=== PATIENT | female | born 1990 | race African-American/Black ===

== ENCOUNTER 2017-09-22 19:27 | Emergency (ER) | payer SELFPAY ==
[~2017-09-22] VITALS: Ht 121.9 cm; Wt 48.0 kg
[~2017-09-22 19:27] MED LIST: HYDR1OIN TOP; PERM5LOT TOP
[2017-09-22 19:29] VITALS: BP 102/62; PULSE 90; RESP 16; TEMP 98.8; O2SAT 100
[2017-09-22] MEDS ORDERED: SODIUM CHLOR 0.9% 1000 ML INJ 1,000 ML IV ONE (20:43)
[2017-09-22] MEDS ORDERED: SODIUM CHLORIDE 0.9% FLUSH 10 ML FLUSH IVF PRN (20:45)
--- NOTE | 2017-09-22 20:58 | PD ---
HPI Chief Complaint: Syncope/Near-Syncope Time Seen by Provider: 20:32 Travel History International Travel<30 days: No Contact w/Intl Traveler<30days: No Traveled to known affect area: No History of Present Illness HPI Patient is a 27-year-old female who presents to emergency room for evaluation of near syncopal versus syncopal episode today. Patient reports that she was at her kitchen table today and felt lightheaded and faint. Reports that she put her head down onto the table and reports that she "blacked out." Patient reports that she was "blacked out" for a minute and then was able to come to. Denies any incontinence of urine or stool, reports no seizure activity. Patient reports that she felt fine all day, she had actually just finished eating her first meal of the day. Reports mild headache at this time. Denies vision changes. Denies n/v. Denies chest pain/sob. Denies abdominal pain. Denies fever/chills. Patient also admits to smoking marijuana. Patient currently not on any anticoagulants at this time. [facility] Past Medical History Medical History: Denies Significant Hx ?: Not LMP: CURRENT Past Surgical History Surgical History: No Previous Surgery Social History Alcohol Use: Yes (OCC) Tobacco Use: No Substance Use: Yes (WEED 2XS MONTHLY) Allergies-Medications (Allergen,Severity, Reaction): Coded Allergies: No Known Allergies (Unverified Adverse Reaction, Unknown, 09/22/17) Reported Meds & Prescriptions Reported Meds & Active Scripts Active Hydrocortisone Maximum St (Hydrocortisone) 1 % Oin 1 Applic TOP BID APPLY TO: Permethrin 1 % Lot 1 Applic TOP ONCE SHAMPOO Review of Systems General / Constitutional: No: Fever Eyes: No: Visual changes HENT: Positive: Headaches, Lightheadedness Cardiovascular: Positive: Syncope, No: Chest Pain or Discomfort Respiratory: No: Shortness of Breath Gastrointestinal: No: Abdominal Pain Genitourinary: No: Dysuria Musculoskeletal: No: Pain Skin: No Rash Neurologic: Positive: Syncope, Headache, No: Weakness, Dizziness Psychiatric: No: Depression Endocrine: No: Polydipsia Hematologic/Lymphatic: No: Easy Bruising Physical Exam Narrative GENERAL: NAD SKIN: Focused skin assessment warm/dry. HEAD: Atraumatic. Normocephalic. EYES: Pupils equal and round. No scleral icterus. No injection or drainage. ENT: No nasal bleeding or discharge. Mucous membranes pink and moist. NECK: Trachea midline. No JVD. CARDIOVASCULAR: Regular rate and rhythm. No murmur appreciated. RESPIRATORY: No accessory muscle use. Clear to auscultation. Breath sounds equal bilaterally. GASTROINTESTINAL: Abdomen soft, non-tender, nondistended. Hepatic and splenic margins not palpable. MUSCULOSKELETAL: No obvious deformities. No clubbing. No cyanosis. No edema. NEUROLOGICAL: Awake and alert. No obvious cranial nerve deficits. Motor grossly within normal limits. Normal speech. CN 2-12 grossly intact with no neurological deficits PSYCHIATRIC: Appropriate mood and affect; insight and judgment normal. Data Data Last Documented VS Vital Signs Date Time Temp Pulse Resp B/P (MAP) Pulse Ox O2 Delivery O2 Flow Rate FiO2 09/22/17 19:29 98.8 90 16 102/62 (75) 100 Room Air Orders Orders Electrocardiogram (09/22/17 20:43) Basic Metabolic Panel (Bmp) (09/22/17 20:43) Ed Urine Pregnancytest Poc (09/22/17 20:43) Complete Blood Count With Diff (09/22/17 20:43) Magnesium (Mg) (09/22/17 20:43) Urinalysis - C+S If Indicated (09/22/17 20:43) Ct Brain W/O Iv Contrast(Rout) (09/22/17 20:43) Ecg Monitoring (09/22/17 20:43) Iv Access Insert/Monitor (09/22/17 20:43) Oximetry (09/22/17 20:43) Sodium Chloride 0.9% Flush (Ns Flush) (09/22/17 20:45) Sodium Chlor 0.9% 1000 Ml Inj (Ns 1000 M (09/22/17 20:43) Orthostatic Vital Signs (09/22/17 20:53) Labs Laboratory Tests Test 09/22/17 21:00 09/22/17 21:10 White Blood Count 9.7 TH/MM3 Red Blood Count 4.99 MIL/MM3 Hemoglobin 13.6 GM/DL Hematocrit 42.2 % Mean Corpuscular Volume 84.6 FL Mean Corpuscular Hemoglobin 27.3 PG Mean Corpuscular Hemoglobin Concent 32.3 % Red Cell Distribution Width 12.6 % Platelet Count 336 TH/MM3 Mean Platelet Volume 8.4 FL Neutrophils (%) (Auto) 76.1 % Lymphocytes (%) (Auto) 14.9 % Monocytes (%) (Auto) 5.9 % Eosinophils (%) (Auto) 0.6 % Basophils (%) (Auto) 2.5 % Neutrophils # (Auto) 7.4 TH/MM3 Lymphocytes # (Auto) 1.4 TH/MM3 Monocytes # (Auto) 0.6 TH/MM3 Eosinophils # (Auto) 0.1 TH/MM3 Basophils # (Auto) 0.2 TH/MM3 CBC Comment DIFF FINAL Differential Comment Blood Urea Nitrogen 13 MG/DL Creatinine 0.90 MG/DL Random Glucose 88 MG/DL Calcium Level 9.0 MG/DL Magnesium Level 2.3 MG/DL Sodium Level 138 MEQ/L Potassium Level 3.9 MEQ/L Chloride Level 104 MEQ/L Carbon Dioxide Level 27.8 MEQ/L Anion Gap 6 MEQ/L Estimat Glomerular Filtration Rate 92 ML/MIN Urine Color YELLOW Urine Turbidity CLEAR Urine pH 5.5 Urine Specific [place] 1.029 Urine Protein TRACE mg/dL Urine Glucose (UA) NEG mg/dL Urine Ketones TRACE mg/dL Urine Occult Blood NEG Urine Nitrite NEG Urine Bilirubin NEG Urine Urobilinogen 2.0 MG/DL Urine Leukocyte Esterase NEG Urine RBC 1 /hpf Urine WBC 2 /hpf Urine Squamous Epithelial Cells 2 /hpf Urine Mucus FEW /lpf Microscopic Urinalysis Comment CULT NOT INDICATED MDM Medical Decision Making Medical Screen Exam Complete: Yes Emergency Medical Condition: Yes Medical Record Reviewed: Yes Interpretation(s) EKG at 2055: NSR at 73bpm, qt/qtc: 363/388, no acute st or t wave changes Vital Signs Date Time Temp Pulse Resp B/P (MAP) Pulse Ox O2 Delivery O2 Flow Rate FiO2 09/22/17 19:29 98.8 90 16 102/62 (75) 100 Room Air Differential Diagnosis Vasovagal syncope, electrolyte abnormality, intracranial hemorrhage, intracranial abnormality, orthostatic hypotension Narrative Course Patient is a 27-year-old female who presents to emergency room after she had a syncopal vs near syncopal episode while at home. Patient reports complete resolution of symptoms at this time. During the course of the patients emergency department visit, the patients history, examination, and differential diagnosis were reviewed with the patient. The patient was placed on a surveillance monitor with oximetry and frequent blood pressure monitoring. The patient had 20-gauge IV access obtained and blood work sent for analysis. The patient was initially provided with IV fluids.. The patients laboratory studies were reviewed and remarkable for CBC & BMP Diagram 09/22/17 21:00 Calcium Level 9.0, Magnesium Level 2.3 UA: trace ketones Radiology studies were reviewed and remarkable for Last Impressions Head CT 09/22/172042 Signed Impressions: Service Date/Time: September 21:30 - CONCLUSION: Negative noncontrast CT Chavez Campa MD Patient is feeling much better at this time. I reviewed all labs and studies with patient in detail. She will follow up with her pcp and will return to ER as needed. Patient with most likely vasovagal syncope Diagnosis Primary Impression: Syncope Qualified Codes: R55 - Syncope and collapse Additional Impression: Dehydration Patient Instructions: General Instructions Additional Instructions: Please provide patient with a copy of their lab work and studies at discharge* * Please follow up with your primary care doctor in 2-3 days Return to the ER if symptoms worsen or progress Return to the ER as needed Disposition: 01 DISCHARGE HOME Condition: Stable Arabella Cordova DO Sep 22, 2017 20:58
[2017-09-22 21:31] LABS: AUTOMATED NEUTROPHIL # 7.4 TH/MM3 (1.8-7.7); BASOPHIL # 0.2 TH/MM3 (0-0.2); BASOPHIL % 2.5 % (0.0-2.0); EOSINOPHIL # 0.1 TH/MM3 (0-0.4); EOSINOPHIL % 0.6 % (0.0-4.0); HEMATOCRIT 42.2 % (35.0-46.0); HEMO FLAGS DIFF FINAL; LYMPH % 14.9 % (9.0-44.0); LYMPHOCYTE # 1.4 TH/MM3 (1.0-4.8); MEAN CELL VOLUME 84.6 FL (80.0-100.0); MEAN CORPUSCULAR HEMOGLOBIN 27.3 PG (27.0-34.0); MEAN CORPUSCULAR HGB CONC 32.3 % (32.0-36.0); MONO % 5.9 % (0.0-8.0); NEUT % 76.1 % (16.0-70.0); PLATELET COUNT 336 TH/MM3 (150-450); RED BLOOD COUNT 4.99 MIL/MM3 (4.00-5.30); RED CELL DISTRIBUTION WIDTH 12.6 % (11.6-17.2); WHITE BLOOD COUNT 9.7 TH/MM3 (4.0-11.0)
[2017-09-22 21:33] LABS: BLOOD, URINE NEG (NEG); COMMENT (UR) CULT NOT INDICATED; CULTURE IF INDICATED CULT NOT INDICATED; GLUCOSE,URINE NEG (NEG); KETONE, URINE TRACE mg/dL (NEG); MUCUS URINE FEW /lpf (OCC); NITRITE,URINE NEG (NEG); PH, URINE 5.5 (5.0-8.5); SQUAMOUS EPITHELIAL CELL URINE 2 /hpf (0-5); URINE COLOR YELLOW (YELLW/STRAW)
--- NOTE | 2017-09-22 21:46 | RADRPT ---
EXAM DATE/TIME: 09/22/2017 21:30 [facility] COMPARISON: No previous studies available for comparison. INDICATIONS : Syncope. Hit back of head when she fell. RADIATION DOSE: 56.35 CTDIvol (mGy) MEDICAL HISTORY : None SURGICAL HISTORY : None. ENCOUNTER: Initial ACUITY: 1 day PAIN SCALE: 0/10 LOCATION: cranial TECHNIQUE: Multiple contiguous axial images were obtained of the head. Using automated exposure control and adj ustment of the mA and/or kV according to patient size, radiation dose was kept as low as reasonably a chievable to obtain optimal diagnostic quality images. DICOM format image data is available electro nically for review and comparison. FINDINGS: CEREBRUM: The ventricles are normal for age. No evidence of midline shift, mass lesion, hemorrhage or acute in farction. No extra-axial fluid collections are seen. POSTERIOR FOSSA: The cerebellum and brainstem are intact. The 4th ventricle is midline. The cerebellopontine angle i s unremarkable. EXTRACRANIAL: The visualized portion of the orbits is intact. SKULL: The calvaria is intact. No evidence of skull fracture. CONCLUSION: Negative noncontrast CT Chavez Campa MD on September 22, 2017 at 21:42 Board Certified Radiologist. This report was verified electronically.
[2017-09-22 21:47] LABS: BICARBONATE 27.8 MEQ/L (21.0-32.0); MAGNESIUM 2.3 MG/DL (1.5-2.5); POTASSIUM 3.9 MEQ/L (3.5-5.1)
[2017-09-22 22:20] VITALS: BP 93/65; RESP 16
[2017-09-22 22:21] VITALS: BP 94/60; RESP 16
[2017-09-22 22:22] VITALS: BP 98/65; RESP 14
--- NOTE | 2017-09-23 09:13 | EKG ---
Date Performed: 09/22/2017 Time Performed: 20:56:24 PTAGE: 27 years EKG: Sinus rhythm WITH SINUS ARRHYTHMIA POSSIBLE LEFT ATRIAL ENLARGEMENT POSSIBLE RIGHT VENTRICULAR CONDUCTION DELAY B ORDERLINE ECG NO PREVIOUS TRACING DOCTOR: Ke Khalil Interpretating Date/Time 09/23/2017 09:11:14
== END 2017-09-22 22:51 | disposition home or self-care (01) ==
LOC: NEPD 19:27
DX: R55 Syncope and collapse (principal); E86.0 Dehydration; F12.90 Cannabis use, unspecified, uncomplicated
CPT/HCPCS: 70450; 80048; 81001; 83735; 84703; 85025; 93005; 96360; 99285; J7030